=== PATIENT | male | born 1965 | race Caucasian/White ===

== ENCOUNTER 2025-03-09 10:36 | Emergency (ER) | payer MEDICARE, SELFPAY ==
--- NOTE | ~2025-03-09 | XR_ITS ---
EXAMINATION: XR CHEST 1 VIEW HISTORY: weakness COMPARISON: There are no prior studies available for comparison. FINDINGS: A single AP portable view of the chest performed at 11:54 AM is submitted. The lungs are expanded and clear. There is no pleural effusion, pneumothorax, or pulmonary vascular congestion. The heart is normal in size. There is degenerative disc disease of the spine. XR/XR chest 1V IMPRESSION: Clear lungs. Electronically signed by: Nitesh Marrero MD 03/09/2025 12:12 PM EDT
--- NOTE | ~2025-03-09 | CT_ITS ---
EXAMINATION: CT HEAD WITHOUT IV CONTRAST HISTORY: Hx of old stroke, ? worsening Rt sided weakness. TECHNIQUE: Unenhanced helical CT of the head was performed per standard departmental protocol. Coronal and sagittal reformats of the head were also evaluated. One or more of the following techniques was used for dose reduction: Automated exposure control, adjustment of the mA and/or kV according to patient size, use of iterative reconstruction technique. DLP: 841 mGy-cm COMPARISON: Comparison is made with the prior examination dated 04/21/2019. FINDINGS: BRAIN: There is diffuse prominence of the ventricular system and cortical sulci, consistent with atrophy. This is most prominent involving the brainstem and cerebellum. Periventricular and subcortical white matter hypodensities are noted which are nonspecific, but often seen in the setting of small vessel ischemic disease. 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 There is no mass effect or midline shift. No intra- or extra-axial fluid collections are identified. SINUSES: The visualized paranasal sinuses are clear. The mastoid air cells and middle ear cavities are well pneumatized. ORBITS: The visualized orbits are unremarkable. BONES/SOFT TISSUES: The extracranial soft tissues are unremarkable. The calvarium is intact. No suspicious lytic or sclerotic lesions. CT/CT head/brain wo IV con IMPRESSION: No acute intracranial abnormality. Electronically signed by: Nitesh Marrero MD 03/09/2025 11:39 AM EDT
[2025-03-09 10:44] LABS: Prothrombin Time Whole Bld POC 13.3 sec (11.1-13.5); ~PT, ~INR - Anti Coag Clinic 1.1 (0.9-1.1)
[2025-03-09 10:45] LABS: Glucose, Whole Blood 151 mg/dL (60-115)
[2025-03-09 10:47] VITALS: BP 166/99; BP 178/114; PULSE 87; PULSE 96; RESP 14; TEMP 37.2; O2SAT 99; BMI 27.0
--- NOTE | 2025-03-09 10:47 | ECG_ITS ---
Test Reason : weakness Blood Pressure : */* mmHG Vent. Rate : 84 BPM Atrial Rate : 84 BPM P-R Int : 136 ms QRS Dur : 90 ms QT Int : 404 ms P-R-T Axes : 64 61 51 degrees QTcB Int : 477 ms Normal sinus rhythm Normal ECG When compared with ECG of 21-Apr-2019 15:27, No significant changes seen Referred By: Reginaldo Allison Electronically Signed By: CUBA DIETZ
--- NOTE | 2025-03-09 10:47 | ED_ITS ---
HPI - General Adult General Chief complaint: Weakness Stated complaint: ?STROKE,LKWT 0900,INCR L DROOP,H/O STROKE/7YRS Time Seen by Provider: 03/09/25 10:47 History of Present Illness ED Provider: wan STARKS narrative: The patient is a 59-year-old man who has a history of a stroke in 2019 that left him with right-sided deficits. 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 The patient has been left with chronic weakness in the right arm and a chronic right facial weakness as well. The weakness in his right leg recovered reasonably well and he has been able to be ambulatory since the stroke although he uses a cane with his left hand when he walks. He was apparently prescribed some kind of anticoagulant at the time of his diagnosis of eye dissection. This was prescribed at discharge from his original hospitalization. He has not taken that medication or any other medication. He drinks about 3 or 4 strong alcoholic liquor drinks daily. He has recently tried to cut back on his alcohol. He felt that he was having great deal of hiccuping over the last 3 days and was feeling unwell. He tried not to drink yesterday and this morning he felt very unwell. He took 2 shots of alcohol and called his to say that he was not feeling well. She called an ambulance and he was brought to the hospital. He says that he feels generally weak. He has a sense of body tingling. No definite headache, chest pain, shortness of breath, or abdominal pain. The patient says that he gets shaky when he does not drink alcohol. He has not done detox in the past. Related Data Previous Rx's ?Medication ?Instructions ?Recorded chlordiazepoxide HCl 25 mg capsule 25 mg PO Q6H PRN al cohol 03/09/25 withdrawal #16 caps Allergies Allergy/AdvReac Type Severity Reaction Status Date / Time No Known Allergies (No Known Allergy Verified 03/09/25 10:54 Allergies*) [facility] Social History Social History Smoked in Last 30 Days: No Substance Use Type Other:: mushrooms Advance Directives: No Advance Directives Information Provided: Yes Physical Exam ED Vital Signs: Vital Signs - 24 hr 03/09/25 10:47 03/09/25 12:07 03/09/25 14:58 Temperature 98.9 F Pulse Rate 87 79 91 Respiratory Rate 14 13 18 Blood Pressure 166/99 H 155/80 H 163/97 H Pulse Oximetry 99 96 97 Oxygen Delivery Method Room Air Room Air Room Air 03/09/25 18:15 Temperature Pulse Rate 88 Respiratory Rate 15 Blood Pressure 157/100 H Pulse Oximetry 97 Oxygen Delivery Method Room Air BMI result Body Mass Index 27.0 Const Other: The patient is a somewhat chronically ill-appearing 59-year-old male who was awake and alert. He looked mildly tremulous and mildly sweaty. He was pleasant and cooperative. HENMT Other: The patient has mild facial asymmetry with some mild right-sided lower facial weakness. Tongue is midline. Mucous membranes moist. Eyes Other: Pupils are round equal, conjunctivae are clear, extraocular movements intact General: appearance normal, both eyes and all related structures Neck Neck: Yes normal visual inspection, Yes full ROM, Yes no lymphadenopathy and Yes no JVD Resp Effort & Inspection: normal respiratory effort Auscultation: clear to auscultation bilaterally Cardio Rate: regular rate Rhythm: regular rhythm Heart sounds: S1 normal heart sound present and S2 normal heart sound present GI Other: Abdomen is soft and nontender Skin Other: The skin was mildly sweaty, not frankly diaphoretic. The skin was otherwise unremarkable. Neuro Other: The patient was awake and alert with a normal mental status. He has some mild right-sided facial weakness that his says is at baseline since his stroke in 2019. His speech is clear. His cranial nerves are otherwise intact. His right arm is weak and mildly contracted. This is also baseline according to the patient and his . He has normal strength in his legs and in his left arm. He was mildly tremulous. Extrem Other: No peripheral edema Medications Administered Discontinued Medications Generic Name Dose Route Start Last Admin Trade Name Freq PRN Reason Stop Dose Admin Diazepam 10 mg 03/09/25 11:40 03/09/25 12:15 Diazepam 10 Mg/2 Ml Cartridge IVPUSH 03/09/25 11:41 10 mg STAT STA Administration Medical Decision Making Medical Decision Making [facility] Narrative: The patient is a 59-year-old male. He has a history of a stroke causing right- sided deficits. The stroke was in 2019. 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 The patient's says that the dissection was prompted by some kind of spinal manipulation, possibly at a chiropractor's. The says that as soon as he left the hospital following the stroke he stopped taking any of the medications he has been started on. He has therefore not been on any medications for years. The patient has been a fairly regular and heavy drinker. He has never been to detox. A few days ago he started to reduce his alcohol intake. He has felt unwell and very weak and tired over the last few days. He says that he had a period of incessant hiccuping and he also has not slept for 3 days. Today he told his how poorly he was doing and she called an ambulance and he was brought here. Paramedics were concerned about the possibility of a worsening of his stroke. When I examined the patient I did not feel there were any findings to suggest a new event and I did not think this was a presentation of an acute new stroke. I think his symptoms are primarily symptoms related to his alcohol use and recent attempts at stopping alcohol. A head CT was done that shows findings consistent with his previous stroke but no acute findings. An EKG showed normal sinus rhythm at 84 beats per minute. No acute ischemic changes. QTC was 477. The patient has a CBC that shows a white count of 4.4, hemoglobin 13.8, platelet count 111, unremarkable differential on his white blood count. I suspect that his CBC findings are consistent with his alcohol use. LFTs show a total bilirubin of 1.5, direct bilirubin 0.6, AST 172, ALT 194, alk phos 88. I suspect his LFT abnormalities are related to his alcohol use. My overall impression was that the patient's presentation is related to his alcohol use and recent attempts at alcohol reduction rather than any other acute medical process. I think the patient would benefit from alcohol detox. The patient was given 10 mg of IV diazepam in the emergency department with remarkable improvement in his symptoms. He felt much better. He was much less tremulous and he felt all the other unpleasant symptoms he had been experiencing resolved. I have consulted the care team for consideration of detox. The patient has been seen by the care team and they have made referrals for inpatient detox. The patient will be placed in physician observation pending efforts of the care team to get the patient into a detox facility. If he deteriorates while in the emergency room he could potentially require inpatient hospitalization for treatment of alcohol withdrawal symptoms but at this point the patient's condition does not seem that severe. He may deteriorate over time however. Addendum: The patient was seen by the care team and there was consideration for going to inpatient detox. However the patient and his are concerned that his baseline disabilities from his previous stroke are sufficiently limiting to his ambulatory status that going to an inpatient detox where he will be expected to be very independent might not be appropriate. Therefore the says that she and her son have removed all alcohol from the house and that she will be willing to look after any medications that might be used to help with alcohol withdrawal symptoms. The patient seems to have done very well with diazepam. I will be discharging him with a prescription for chlordiazepoxide that the will be in charge of monitoring. Additionally they should contact [facility] tomorrow and he should also contact his PCP to check in tomorrow as well. Lab Data 03/09/25 11:29 03/09/25 11:29 Labs: Lab Results 03/09/25 03/09/25 03/09/25 Range/Units 10:39 10:40 11:29 WBC 4.4 L (4.8-10.8) X10*3/uL RBC 4.24 L (4.60-5.80) X10*6/uL Hgb 13.8 L (14.0-18.0) g/dl Hct 37.6 L (42.0-52.0) % MCV 88.7 (80.0-98.0) fL MCH 32.5 (27.0-33.0) pg MCHC 36.7 H (31.0-36.0) g/dl RDW 13.8 (11.0-16.0) % Plt Count 111 L (160-400) X10*3/uL MPV 10.4 (9.4-12.4) fL Immature Gran % (Auto) 0.2 (0.0-0.4) % Neut % (Auto) 51.3 (45-73) % Lymph % (Auto) 30.6 (20-40) % [place] % (Auto) 12.6 H (2-11) % Eos % (Auto) 4.4 H (0-4) % Baso % (Auto) 0.9 (0-2) % Lymph # (Auto) 1.3 (1.2-4.9) X10*3/uL [place] # (Auto) 0.6 (0.1-1.2) X10*3/uL Eos # (Auto) 0.2 (0.0-0.4) X10*3/uL Baso # (Auto) 0.0 (0.0-0.2) X10*3/uL Abs Immat Gran (auto) 0.01 (0.00-0.03) X10*3/uL Absolute Neuts (auto) 2.2 (2.0-8.3) x10*3/uL Absolute Nucleated RBC 0.000 (0.0-0.012) X10*3/uL Nucleated RBC % (auto) 0.0 (0.0-0.2) /100WBC PT 13.4 H (10.9-12.4) SEC Whole Blood PT 13.3 (11.1-13.5) sec INR 1.2 H (0.9-1.1) Whole Blood INR 1.1 (0.9-1.1) VBG pH (7.32-7.43) VBG pCO2 mmHg VBG pO2 mmHg VBG HCO3 (22-26) mmol/L VBG O2 Saturation % VBG Base Excess mmol/L Sodium 139 (135-145) mmol/L Potassium 3.8 (3.3-5.1) mmol/L Chloride 104 (96-108) mmol/L Carbon Dioxide 23 (22-29) mmol/L Anion Gap 16 (12-20) BUN 8 L (9-16) mg/dL Creatinine 0.59 (0.5-1.4) mg/dL Estim Creat Clear Calc 129.1 Estimated GFR > 60 POC Glucose 151 H (60-115) mg/dL Random Glucose 147 H (60-115) mg/dL Calcium 9.2 (8.4-10.2) mg/dL Magnesium 1.9 (1.6-2.6) mg/dL Total Bilirubin 1.5 H (0.0-1.0) mg/dL Direct Bilirubin 0.6 H (0.0-0.5) mg/dL AST 172 H (5-37) U/L ALT 194 H (0-40) U/L Alkaline Phosphatase 88 (39-117) U/L Troponin I High Sens 2.7 (<3.5-35.0) ng/L C-Reactive Protein 0.23 (< or = 0.50) mg/dL B-Natriuretic Peptide 17 (<100) pg/mL Total Protein 8.2 H (6.5-8.0) g/dL Albumin 4.5 (3.5-5.0) g/dL Urine Color Urine Appearance Urine pH (5.0-9.0) Ur Specific [place] (1.005-1.025) Urine Protein (Neg-Trace) mg/dL Urine Glucose (UA) (Negative) mg/dL Urine Ketones (Negative) mg/dL Urine Blood (Negative) Urine Nitrite (Negative) Ur Leukocyte Esterase (Negative) Urine Opiates Screen (Not Detect) Ur Buprenorphine Scrn (Not Detect) ng/mL Ur Oxycodone Screen (Not Detect) ng/mL Urine Methadone Screen (Not Detect) ng/mL Urine Fentanyl Screen (Not Detect) Ur Barbiturates Screen (Not Detect) Ur Phencyclidine Scrn (Not Detect) Ur Amphetamines Screen (Not Detect) U Benzodiazepines Scrn (Not Detect) Urine Cocaine Screen (Not Detect) U Marijuana (THC) Screen (Not Detect) Ethyl Alcohol 27 mg/dL Influenza Type A (PCR) (Negative) Influenza Type B (PCR) (Negative) RSV RNA Qual (PCR) (Negative) SARS-CoV-2 RNA (RT-PCR) (Negative) 03/09/25 03/09/25 03/09/25 Range/Units 11:29 11:50 15:23 WBC (4.8-10.8) X10*3/uL RBC (4.60-5.80) X10*6/uL Hgb (14.0-18.0) g/dl Hct (42.0-52.0) % MCV (80.0-98.0) fL MCH (27.0-33.0) pg MCHC (31.0-36.0) g/dl RDW (11.0-16.0) % Plt Count (160-400) X10*3/uL MPV (9.4-12.4) fL Immature Gran % (Auto) (0.0-0.4) % Neut % (Auto) (45-73) % Lymph % (Auto) (20-40) % [place] % (Auto) (2-11) % Eos % (Auto) (0-4) % Baso % (Auto) (0-2) % Lymph # (Auto) (1.2-4.9) X10*3/uL [place] # (Auto) (0.1-1.2) X10*3/uL Eos # (Auto) (0.0-0.4) X10*3/uL Baso # (Auto) (0.0-0.2) X10*3/uL Abs Immat Gran (auto) (0.00-0.03) X10*3/uL Absolute Neuts (auto) (2.0-8.3) x10*3/uL Absolute Nucleated RBC (0.0-0.012) X10*3/uL Nucleated RBC % (auto) (0.0-0.2) /100WBC PT (10.9-12.4) SEC Whole Blood PT (11.1-13.5) sec INR (0.9-1.1) Whole Blood INR (0.9-1.1) VBG pH 7.56 H (7.32-7.43) VBG pCO2 25 mmHg VBG pO2 163 mmHg VBG HCO3 23 (22-26) mmol/L VBG O2 Saturation 100.0 % VBG Base Excess 2.7 mmol/L Sodium (135-145) mmol/L Potassium (3.3-5.1) mmol/L Chloride (96-108) mmol/L Carbon Dioxide (22-29) mmol/L Anion Gap (12-20) BUN (9-16) mg/dL Creatinine (0.5-1.4) mg/dL Estim Creat Clear Calc Estimated GFR POC Glucose (60-115) mg/dL Random Glucose (60-115) mg/dL Calcium (8.4-10.2) mg/dL Magnesium (1.6-2.6) mg/dL Total Bilirubin (0.0-1.0) mg/dL Direct Bilirubin (0.0-0.5) mg/dL AST (5-37) U/L ALT (0-40) U/L Alkaline Phosphatase (39-117) U/L Troponin I High Sens (<3.5-35.0) ng/L C-Reactive Protein (< or = 0.50) mg/dL B-Natriuretic Peptide (<100) pg/mL Total Protein (6.5-8.0) g/dL Albumin (3.5-5.0) g/dL Urine Color Yellow Urine Appearance Clear Urine pH 8.5 (5.0-9.0) Ur Specific [place] 1.015 (1.005-1.025) Urine Protein Negative (Neg-Trace) mg/dL Urine Glucose (UA) Negative (Negative) mg/dL Urine Ketones 15 (Negative) mg/dL Urine Blood Negative (Negative) Urine Nitrite Negative (Negative) Ur Leukocyte Esterase Negative (Negative) Urine Opiates Screen Not Detected (Not Detect) Ur Buprenorphine Scrn Not Detected (Not Detect) ng/mL Ur Oxycodone Screen Not Detected (Not Detect) ng/mL Urine Methadone Screen Not Detected (Not Detect) ng/mL Urine Fentanyl Screen Not Detected (Not Detect) Ur Barbiturates Screen Not Detected (Not Detect) Ur Phencyclidine Scrn Not Detected (Not Detect) Ur Amphetamines Screen Not Detected (Not Detect) U Benzodiazepines Scrn Not Detected (Not Detect) Urine Cocaine Screen Not Detected (Not Detect) U Marijuana (THC) Screen Not Detected (Not Detect) Ethyl Alcohol Cancelled mg/dL Influenza Type A (PCR) NEGATIVE (Negative) Influenza Type B (PCR) NEGATIVE (Negative) RSV RNA Qual (PCR) NEGATIVE (Negative) SARS-CoV-2 RNA (RT-PCR) NEGATIVE (Negative) Discharge Plan Discharge Clinical Impression: Alcohol withdrawal, Alcoholism, History of stroke Patient Disposition: Home, Self-Care Instructions: Alcohol Withdrawal (ED) Additional Instructions: I have sent a prescription to the [facility] on [address] in [place] for the medication chlordiazepoxide. This medication is also known as Librium. This is a medication like Valium or Ativan which is often used for alcohol withdrawal symptoms. Your should be in charge of giving you this medication. The prescription has been written for you to take 1 tablet every 6 hours as needed for alcohol withdrawal symptoms. If necessary the dose can be doubled for the 1st day. That would mean that you could take 2 tablets every 6 hours as needed. Try to avoid alcohol. Please plan on following up with your regular doctor, call the office in the morning. Additionally it would be useful to contact the [facility] here [facility]. They are an outpatient clinic that helps with substance use issues including alcohol. Please call them for a follow up appointment to discuss additional strategies for alcohol cessation. If you feel significantly worse at any time please return to the emergency room. Prescriptions: New chlordiazepoxide HCl 25 mg capsule 25 mg PO Q6H PRN (Reason: alcohol withdrawal) Qty: 16 0RF Referrals: [facility] [Provider Group] Ariel Johnson MD [Primary Care Provider, Internal Medicine] Print Language: Palestinian
--- NOTE | 2025-03-09 11:26 | PC.NURSE ---
Pt BIBA. called EMS for increased weakness after waking this AM and had hard time moving around his house, had numbness and tingling all over body but has since resolved. also reports 4 days of hiccups and poor sleep. Pt has a hx of stroke 7 yrs ago, has right-sided deficits. Has not been on blood thinners for several years. He also reports being a daily drinker, having about 5 drinks of vodka daily. He tried to stop yesterday, he did have 2 shots this morning. No hx of alcohol withdrawals. He also says he was microdosing mushrooms and stopped a week ago. Hes alert and oriented, breathing normally, unlabored. Denies shortness of breath. Skin p/w/d. currently experiencing some nausea. No vomiting or pain. He does have weakness in his right arm and slight right-sided facial droop which is his baseline. He has an 18g IV in his LAC by EMS. 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 VSS. Blood work obtained and sent to lab. Family at bedside. Plan of care on going.
[2025-03-09 11:39] LABS: MANUAL DIFF FLAG NO
[2025-03-09 11:47] LABS: Hematocrit 37.6 % (42.0-52.0); Hemoglobin 13.8 g/dl (14.0-18.0); Imm Gran Abs Auto 0.01 X10*3/uL (0.00-0.03); Imm Gran Pct Auto 0.2 % (0.0-0.4); Lymphocytes Absolute Auto 1.3 X10*3/uL (1.2-4.9); Mean Corpuscular HGB Conc 36.7 g/dl (31.0-36.0); Mean Corpuscular Hemoglobin 32.5 pg (27.0-33.0); Mean Corpuscular Volume 88.7 fL (80.0-98.0); NRBC Abs Auto 0.000 X10*3/uL (0.0-0.012); NRBC Pct Auto 0.0 /100WBC (0.0-0.2); Platelet Count 111 X10*3/uL (160-400); Red Blood Count 4.24 X10*6/uL (4.60-5.80); White Blood Count 4.4 X10*3/uL (4.8-10.8)
[2025-03-09 11:49] LABS: INTERNATIONAL NORM RATIO 1.2 (0.9-1.1); Prothrombin Time 13.4 SEC (10.9-12.4)
[2025-03-09 11:54] LABS: VBG HCO3 23 mmol/L (22-26); VBG O2 % Saturation 100.0 %
[2025-03-09 11:54] LABS: Venous Blood Gas Refer to POC result
[2025-03-09 11:59] LABS: Alanine Aminotransferase 194 U/L (0-40); Albumin Level 4.5 g/dL (3.5-5.0); Alkaline Phosphatase 88 U/L (39-117); Anion Gap 16 (12-20); Aspartate Amino Transferase 172 U/L (5-37); Blood Urea Nitrogen 8 mg/dL (9-16); Calcium 9.2 mg/dL (8.4-10.2); Carbon Dioxide 23 mmol/L (22-29); Chloride 104 mmol/L (96-108); Creatinine Clr Calc Pharmacy 129.1; Estimated Glomerular Filt Rate > 60; Magnesium 1.9 mg/dL (1.6-2.6); Potassium 3.8 mmol/L (3.3-5.1); Sodium 139 mmol/L (135-145); Total Protein 8.2 g/dL (6.5-8.0)
[2025-03-09 12:02] LABS: B Type Natriuretic Peptide 17 pg/mL (<100)
[2025-03-09 12:03] LABS: Troponin-I High Sensitivity 2.7 ng/L (<3.5-35.0)
[2025-03-09 12:07] VITALS: BP 155/80; PULSE 79; RESP 13; O2SAT 96
[2025-03-09] MEDS: diazePAM 10 MG/2 ML CARTRIDGE IVPUSH (12:15)
[2025-03-09 12:29] LABS: Resp Syncy Virus RNA Qual PCR NEGATIVE (Negative); SARS COV2 PCR INHOUSE NEGATIVE (Negative)
--- OUTSIDE RECORDS SUMMARY | 2025-03-09 13:04 | XMS_ITS | Encounter Summary ---
Author Organization Formerly [facility] Address [address] [place] [address] Care Team Providers Care Business Trainer Name Role Phone Unknown Primary Care Provider [phone] Ariel Johnson DO Primary Care Provider [phone] Pcp, No Primary Care Provider Unavailabl e Ariel Johnson DO Primary Care Provider [phone] Encounter Details Date Type Department Care Team (Late st Contact Info) Description 04/21/2019 Scanned Document [address] [id number] Medical Records, Scan Social History Tobacco Use Types Packs/Day Years Used Date Smoking Tobacco: Never Smokeless Tobacco: Never Alcohol Use Standard Drinks/Week Comments Yes 0 (1 standard drink = 0.6 oz pur e alcohol) AUDIT-C Answer Date Recorded Frequency of Alcohol Consumption 2-4 times a fri04/21/2019 Average Number of Drinks Not on file 019 Frequency of Binge Drinking Not on file 04/04 Sex and Gender Information Value Date Recorded Sex Assigned at Not on file Legal Sex Male 4:03 PM EDT Gender Identity Not on file Sexual Orientation Not on file documented as of this encounter Functional Status documented as of this encounter Plan of Treatment Not on file documented as of this encounter Visit Diagnoses Not on filedocumented in this encounter Care Teams Business Trainer Relationship Specialty Start Date End Date Unknown Unknow Provider Address PCP - General 04/23/19 04/23/19 Ariel Johnson DO [address] [facility] [place] [address] [place] [address] PCP - General 04/21/19 04/22/19 Pcp, No PCP - General General Medicine 05/04/19 06/23/19 Ariel Johnson DO [address] [facility] [place] [address] [place] [address] PCP - General 06/24/19 documented as of this encounter
[2025-03-09 14:58] VITALS: BP 163/97; PULSE 91; RESP 18; O2SAT 97
--- NOTE | 2025-03-09 15:09 | MHC.CARE ---
Pt is a detox bed search currently.
[2025-03-09 15:32] LABS: Appearance Urine Clear; Glucose Urine UA Negative (Negative); PH 8.5 (5.0-9.0); Specific Gravity - Urine 1.015 (1.005-1.025)
[2025-03-09 15:41] LABS: Cannabinoid Screen Urine Not Detected (Not Detect)
--- NOTE | 2025-03-09 15:50 | MHC.CARE ---
Patient has Medicare A & B insurance so detox facilities that accept his insurance is limited. [facility] [place] [facility], referral was faxed and they do not have any male beds currently [facility] reports they have no beds [facility] have a male bed, referral faxed over and they are currently reviewing for possible admission.
[2025-03-09 18:15] VITALS: BP 157/100; PULSE 88; RESP 15; O2SAT 97
--- NOTE | 2025-03-09 18:43 | MHC.CARE ---
Received a call from Radha at [facility] detox, requesting a phone screening with Pt. Checked in with Pt afterwards who reports that he was declined due to mobility issues. Reginaldo Allison is present for this conversation and it was decided for Pt to discharge home with a script to assist with withdrawal which Pt's will assist with. Alcohol has been taken out of the home. Pt was provided information about [facility]'s [facility].
[2025-03-09 18:54] VITALS: BP 166/94; PULSE 92; RESP 20; TEMP 36.8; O2SAT 96
== END 2025-03-09 19:37 | disposition home or self-care (01) ==
PROVIDERS: Emergency Provider Emergency Medicine; PCP Internal Medicine
DX: F10.239 Alcohol dependence with withdrawal, unspecified (principal); Y90.1 Blood alcohol level of 20-39 mg/100 ml; R29.810 Facial weakness; M62.81 Muscle weakness (generalized); Z86.73 Personal history of transient ischemic attack (TIA), and cerebral infarction without residual deficits; Z79.899 Other long term (current) drug therapy; Z03.818 Encounter for observation for suspected exposure to other biological agents ruled out; Z71.41 Alcohol abuse counseling and surveillance of alcoholic; Z79.01 Long term (current) use of anticoagulants; Z51.81 Encounter for therapeutic drug level monitoring
CPT/HCPCS: 36415; 70450; 71045; 80048; 80076; 80307; 81003; 82803; 82947; 83735; 83880; 84484; 85025; 85610; 86140; 87637; 93005; 99285; J3360; S9485

== ENCOUNTER → 2025-03-09 10:47 | Outpatient (BNV) | payer MEDICARE, SELFPAY | PROVIDERS: Emergency Provider Emergency Medicine; PCP Internal Medicine; Visit Provider Internal Medicine | DX: R53.1 Weakness (principal) | CPT/HCPCS: 93010 ==

== ENCOUNTER → 2025-03-09 10:48 | Outpatient (BNV) | payer MEDICARE, SELFPAY | PROVIDERS: Emergency Provider Emergency Medicine; Visit Provider Radiology Diagnostic Radiology | DX: R53.1 Weakness (principal) | CPT/HCPCS: 70450; 71045 ==

== ENCOUNTER 2025-04-15 10:08 | Outpatient (REF) | payer MEDICARE, SELFPAY ==
--- OUTSIDE RECORDS SUMMARY | 2025-04-15 11:33 | XMS_ITS | Encounter Summary ---
Author Organization [facility] Address [address] [facility] [address] [place] [address] Phone Care Team Providers Care Flue Lining Dipper Name Role Phone Ariel Johnson Primary Care Provider [phone] Reason for Referral * Occupational Therapy (Routine) - Closed Specialty Diagnoses / Procedures Referred By Contac t Referred To Contact Occupational Therapy Diagnoses Encounter for rehabilitation Regla Thomson MD [address] [facility] [address] [place] [address] Phone: tel: fax: [facility] [address] [place] [address] Phone: tel: Referral ID Status Reason Start Date Expiration Date Visits Re quested Visits Authorized [id number] Closed 05/27/2019 08/03/2020 99 [phone] Encounter Details Date Type Department Care Team (Latest Contact Info) Description 05/27/2019 Transcribe Orders [facility] [address] [place] [address] Regla Thomson MD [address] [facility] [address] [place] [address] Encounter for rehabilitation (Primary Dx) Social History Tobacco Use Types Packs/Day Years Used Date Smoking Tobacco: Never Assessed Sex and Gender Information Value Date Recorded Sex Assigned at Male 06/30/2019 6:43 PM EST Legal Sex Male 9:38 PM EDT Gender Identity Male 06/30/2019 6:43 PM EST Sexual Orientation Straight 06/30/2019 6: 43 PM EST documented as of this encounter Plan of Treatment Scheduled Referrals Name Type Priority Associated Diagnoses Orde r Schedule Ambulatory referral to [facility] Occupational Therapy Outpatient Referral Routine Encounter for rehabilitation Ordered: 05/27/2019 documented as of this encounter Visit Diagnoses Diagnosis Encounter for rehabilitation- Primary documented in this encounter Care Teams Flue Lining Dipper Relationship Specialty Start Date End Date Ariel Johnson DO [email or web address] PCP - General Internal Medicine 06/02/19 documented as of this encounter Additional Source Comments The information contained in this document represents components of the legal health record. It is not the complete legal health record.[facility]
--- OUTSIDE RECORDS SUMMARY | 2025-04-15 11:33 | XMS_ITS | Encounter Summary ---
Author Organization [facility] Address [address] [place] [address] [place] [address] Phone Care Team Providers Care Media Assistant Name Role Phone Ariel Johnson DO Primary Care Provider [phone] Encounter Details Date Type Department Care Team (Late st Contact Info) Description 05/27/2019 Transcribe Orders [facility] Services [address] [place] [address] Regla Thomson MD [address] [facility] 1 [place] [address] Social History Tobacco Use Types Packs/Day Years [...] on filedocumented in this encounter Care Teams Media Assistant Relationship Specialty Start Date End Date Ariel Johnson DO PCP - General Internal Medicine 06/02/19 documented as of this encounter Additional Source Comments The information contained in this document represents components of the legal health record. It is not the complete legal health record.[facility]
--- OUTSIDE RECORDS SUMMARY | 2025-04-15 11:33 | XMS_ITS | Encounter Summary ---
Author Organization [facility] Address [address] [place] [address] Phone Care Team Providers Care Quotation Checker Name Role Phone Ariel Johnson Primary Care Provider Reason for Referral * Physical Therapy (Routine) - Closed Specialty Diagnoses / Procedures Referred By Contac t Referred To Contact Physical Therapy Diagnoses Encounter for rehabilitation Regla Thomson MD [address] [facility] 1 [place] [address] Phone: tel: fax: [facility] [address] [place] [address] Phone: tel: Referral ID Status Reason Start Date Expiration Date Visits Re quested Visits Authorized [id number] Closed 05/27/2019 08/03/2020 99 99 Encounter Details Date Type Department Care Team (Latest Contact Info) Description 05/27/2019 Transcribe Orders [facility] Rehabilitation [facility] [address] [place] [address] Regla Thomson MD [address] [facility] 1 [place] [address] Encounter for rehabilitation (Primary Dx) Social History [...] Diagnoses Orde r Schedule Ambulatory referral to [facility] Physical Therapy Outpatient Referral Routine Encounter for rehabilitation Ordered: 05/27/2019 documented as of this encounter Visit Diagnoses Diagnosis Encounter for rehabilitation- Primary documented in this encounter Care Teams Quotation Checker Relationship Specialty Start Date End Date Ariel Johnson DO [email or web address] PCP - General Internal Medicine 06/02/19 documented as of this encounter Additional Source Comments The information contained in this document represents components of the legal health record. It is not the complete legal health record.[facility]
--- OUTSIDE RECORDS SUMMARY | 2025-04-15 11:34 | XMS_ITS | Encounter Summary ---
Author Organization [facility] Address [address] [place] [address] Phone Care Team Providers Care Scale Clerk Name Role Phone Ariel Johnson Primary Care Provider [phone] Reason for Referral * Speech Therapy (Routine) - Closed Specialty Diagnoses / Procedures Referred By Contac t Referred To Contact Speech Pathology Diagnoses Encounter for rehabilitation Regla Thomson MD [address] [facility] 1 [place] [address] Phone: tel: fax: [facility] [address] [place] [address] Phone: tel: Referral ID Status Reason Start Date Expiration Date Visits Re quested Visits Authorized [id number] Closed 05/27/2019 08/03/2020 99 99 Encounter Details Date Type Department Care Team (Latest Contact Info) Description 05/27/2019 Transcribe Orders [facility] Rehabilitation Services 8 [place] [address] Regla Thomson MD [address] [facility] 1 [place] [address] Encounter for rehabilitation (Primary Dx) Social History [...] Diagnoses Orde r Schedule Ambulatory referral to [facility] Speech Language Pathology Outpatient Referral Routine Encounter for rehabilitation Ordered: 05/27/2019 documented as of this encounter Visit Diagnoses Diagnosis Encounter for rehabilitation- Primary documented in this encounter Care Teams Scale Clerk Relationship Specialty Start Date End Date Ariel Johnson DO [email or web address] PCP - General Internal Medicine 06/02/19 documented as of this encounter Additional Source Comments The information contained in this document represents components of the legal health record. It is not the complete legal health record.[facility]
--- OUTSIDE RECORDS SUMMARY | 2025-04-15 11:34 | XMS_ITS | Encounter Summary ---
Author Organization [facility] Address [address] [place] [address] Care Team Providers Care Tumbling Machine Operator Name Role Phone Unknown Primary Care Provider [phone] Ariel Johnson DO Primary Care Provider [phone] Pcp, No Primary Care Provider Unavailabl e Ariel Johnson DO Primary Care Provider [phone] Encounter Details Date Type Department Care Team (Late st Contact Info) Description 04/21/2019 Scanned Document [address] [address] Medical Records, Scan Social History [...] on filedocumented in this encounter Care Teams Tumbling Machine Operator Relationship Specialty Start Date End Date Unknown Unknow Provider Address PCP - General 04/23/19 04/23/19 Ariel Johnson DO [address] [facility] [place] [address] [place] [address] PCP - General 04/21/19 04/22/19 Pcp, No PCP - General General Medicine 05/04/19 06/23/19 Ariel Johnson DO [address] [facility] [place] [address] [place] [address] PCP - General 06/24/19 documented as of this encounter
--- OUTSIDE RECORDS SUMMARY | 2025-04-15 11:34 | XMS_ITS | Encounter Summary ---
Author Organization [facility] Address [address] [place] [address] Care Team Providers Care Casing Man Name Role Phone Ariel Johnson DO Primary Care Provider [phone] Encounter Details Date Type Department Care Team (Late st Contact Info) Description 07/22/2019 Scanned Document [facility] [address] [place] [phone] Cherise Castillo MD Social History Tobacco Use Types Packs/Day Years Used Date Smoking Tobacco: Never Smokeless Tobacco: Never Alcohol Use Standard Drinks/Week Comments Yes 0 (1 standard drink = 0.6 oz pur e alcohol) AUDIT-C Answer Date Recorded Frequency of Alcohol Consumption 2-4 times a mon th 04/21/2019 Average Number of Drinks Not on file 019 Frequency of Binge Drinking Not on file 04/04 Sex and Gender Information Value Date Recorded Sex Assigned at Not on file Legal Sex Male 4:03 PM EDT Gender Identity Not on file Sexual Orientation Not on file documented as of this encounter Plan of Treatment Not on file documented as of this encounter Visit Diagnoses Not on filedocumented in this encounter Care Teams Casing Man Relationship Specialty Start Date End Date Ariel Johnson DO [address] [facility] [address] [place] [address] PCP - General 06/24/19 documented as of this encounter
--- OUTSIDE RECORDS SUMMARY | 2025-04-15 11:34 | XMS_ITS | Clinical Summary ---
Author Organization [facility] Address [address] [place] [address] Care Team Providers Care Inventory Control Analyst Name Role Phone Ariel Johnson Primary Care Provider Allergies No known active allergies Medications atorvastatin (LIPITOR) 80 MG tabletIndicatio ns:Ischemic stroke (HCC) Take 1 tablet (80 mg total) by mouth daily. Do not start before April 29, 2019. 30 tablet 9 Active tamsulosin (FLOMAX) 0.4 MG capsuleIndicati ons:Ischemic stroke (HCC) Take 2 capsules (0.8 mg total) by mouth every evening after dinner. 60 capsule 9 Active Multiple Vitamin (MULTIVITAMIN) capsule Take 1 capsule by mouth daily. Active b complex vitamins tablet Take 1 tablet by mouth daily. Active coenzyme Q10 (CO Q 10) 100 MG capsule Take 100 mg by mouth daily. Active omega-3 fatty acids (FISH OIL) 1000 MG Cap capsule Take by mouth. Act carolyn zinc sulfate (ZINCATE) 220 mg capsule Take 220 mg by mouth daily. Active MISC MEDICATION/NEUT RACEUTICALIndic ations:saw palmetto by Does not apply route. Active apixaban (ELIQUIS) 5 MG tabletIndicatio ns:Basilar artery thrombosis,Acut e ischemic stroke (HCC) Take 1 tablet (5 mg total) by mouth every 12 (twelve) hours around the clock. 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 Acute ischemic stroke 04/21/2019 Overview (04/21/2019): Added automatically from request for surgery [id number] Family History Medical History Relation Name Comments Heart failure Brother Heart failure Father COPD Mother Relation Name Status Comments Brother Father Mother Alive Social History Tobacco Use Types Packs/Day Years [...] on file Sexual Orientation Not on file Last Filed Vital Signs Vital Sign Reading Time Taken Comments Blood Pressure 122/72 08/21/2019 7:39 AM EST Pulse 77 08/21/2019 7:39 AM EST Temperature 36.1 C (96.9 F) 08/21/2019 7:39 AM EST Respiratory Rate 18 08/20/2019 11:30 PM EST Oxygen Saturation 95% 08/21/2019 7:39 AM EST Inhaled Oxygen Concentration - - Weight 95.3 kg (210 lb) 11/09/2019 1:00 PM EDT Height 170.2 cm (5' 7 ) 11/09/2019 1:00 PM EDT Body Mass Index 32.89 11/09/2019 1:00 PM EDT Plan of Treatment Health Maintenance Due Date Last Done Comments Hepatitis C Virus Screening 1965 HIV Screening 11/27/1980 DTaP/Tdap/Td Vaccines (1 - Tdap) 11/27/1986 Hepatitis B Vaccines (1 of 3 - 19+ 3-dose series) 11/03 Colonoscopy 11/27/2012 Pneumococcal Vaccines 50+ (1 of 1 - PCV) 11/27/2017 Zoster (Shingles) Vaccine (1 of 2) 11/27/2017 Influenza Vaccine 03/04/2025 COVID-19 Vaccine (1 - 2023- season) 2025 Insurance [employer] HMO/POS Advance Directives * Full Code (Latest Code Status on File) Date Activated Date Inactivated Comments 08/20/2019 6:50 PM * Full Code Date Activated Date Inactivated Comments 04/21/2019 5:19 PM 08/20/2019 6:34 PM Care Teams Inventory Control Analyst Relationship Specialty Start Date End Date Ariel Johnson DO [address] [facility] [address] [place] [address] PCP - General 06/24/19
--- OUTSIDE RECORDS SUMMARY | 2025-04-15 11:34 | XMS_ITS | Encounter Summary ---
Author Organization [facility] Address [address] [facility] [address] [place] [address] Phone Care Team Providers Care Line Service Technician Name Role Phone Ariel Johnson DO Primary Care Provider [phone] Encounter Details Date Type Department Care Team (Latest Contact Info) Description 06/25/2019 Transcribe Orders Virtual Department [address] [place] [address] Marry Pimentel, KILEY [address] [place] [address] Localized edema (Primary Dx) Social History Tobacco Use Types [...] on file documented as of this encounter Results * US Lower Extremity Veins Duplex (Right) (06/30/2019 5:36 PM EST) Anatomical Region Laterality Modality Hip Right, Thigh Right, Knee Right, Leg Right, Ankle Right, Foot Right Ultrasound 06/30/2019 6:06 PM EST Impressions 06/30/2019 6:14 PM EST Evidence of venous thrombosis involving the tributaries to the right popliteal vein. US technologist communicated the findings to Dr. Allison. POS - [id number] Narrative 06/30/2019 6:14 PM EST EXAM: US LOWER EXTREMITY VEINS DUPLEX (RIGHT) HISTORY: EDEMA OF LOWER EXTREMITY RIGHT LOWER EXTREMITY SWOLLEN AND PAINFUL COMPARISON: None Ultrasound examination of the deep venous system of the right leg was performed from the common femoral vein into the upper calf and includes the posterior tibial vein at the ankle. Intraluminal echogenic material noted in the evaluated tributaries of the popliteal vein. The popliteal and femoral veins demonstrate preserved flow, compressibility, and augmentation. No popliteal cyst. Procedure Note Benji Echavarria MD - 06/30/2019 EXAM: US LOWER EXTREMITY VEINS DUPLEX (RIGHT) HISTORY: EDEMA OF LOWER EXTREMITY RIGHT LOWER EXTREMITY SWOLLEN AND PAINFUL COMPARISON: None Ultrasound examination of the deep venous system of the right leg wasperformed from the common femoral vein into the upper calf and includesthe posterior tibial vein at the ankle. Intraluminal echogenic material noted in the evaluated tributaries of thepopliteal vein. The popliteal and femoral veins demonstrate preservedflow, compressibility, and augmentation. No popliteal cyst. IMPRESSION: Evidence of venous thrombosis involving the tributaries to the rightpopliteal vein. US technologist communicated the findings to Dr. Allison. POS - [id number] November Loren CAO CV US VASCULAR Final Result documented in this encounter Visit Diagnoses Diagnosis Localized edema- Primary Edema Localized edema Edema documented in this encounter Care Teams Line Service Technician Relationship Specialty Start Date End Date Ariel Johnson DO [email or web address] PCP - General Internal Medicine 06/02/19 documented as of this encounter Additional Source Comments The information contained in this document represents components of the legal health record. It is not the complete legal health record.[facility]
--- OUTSIDE RECORDS SUMMARY | 2025-04-15 11:34 | XMS_ITS | Encounter Summary ---
Author Organization [facility] Address [address] [place] [address] Care Team Providers Care Acid Dumper Name Role Phone Ariel Johnson Khushboo ROSE Primary Care Provider [phone] Encounter Details Date Type Department Care Team (Late st Contact Info) Description 08/02/2019 Telephone [facility] [address] [place] [address] [phone] Milagros Downing, ABDIFATAH [address] [place] [address] Social History Tobacco Use Types Packs/Day Years [...] on file documented as of this encounter Miscellaneous Notes * Telephone Encounter - Milagros Downing RN - 08/02/2019 9:30 AM EST Pt's spouse called,stated pt's PCP stated pt should be on Eliquis for 3 months following the occurrence of the blood clot,not 30 days. Spouse stated he was told to take the Eliquis for 30 days and then resume the ASA when he was seen for the blood clot. Please advise. documented in this encounter Plan of Treatment Not on file documented as of this encounter Visit Diagnoses Not on filedocumented in this encounter Care Teams Acid Dumper Relationship Specialty Start Date End Date Ariel Johnson DO [address] [facility] [place] [address] [place] [address] PCP - General 06/24/19 documented as of this encounter
--- OUTSIDE RECORDS SUMMARY | 2025-04-15 11:34 | XMS_ITS | Encounter Summary ---
Author Organization [facility] Address [address] [place] [address] Care Team Providers Care Cutlery Grinder Name Role Phone Ariel Johnson DO Primary Care Provider Encounter Details Date Type Department Care Team (Late st Contact Info) Description 08/07/2019 Scanned Document [facility] [address] [place] [address] [phone] Cherise Castillo MD Social History Tobacco Use [...] on filedocumented in this encounter Care Teams Cutlery Grinder Relationship Specialty Start Date End Date Ariel Johnson DO [address] [facility] [place] [address] [place] [address] PCP - General 06/24/19 documented as of this encounter
--- OUTSIDE RECORDS SUMMARY | 2025-04-15 11:34 | XMS_ITS | Encounter Summary ---
Author Organization [facility] Address [address] [address] Phone Care Team Providers Care Signal Mechanic Name Role Phone Ariel Johnson DO Primary Care Provider [phone] Encounter Details Date Type Department Care Team (Latest Contact Info) Description 07/30/2021 Transcribe Orders Virtual Department [address] [place] [address] Jossy Arroyo PA [address] [place] [address] [place] [address] Other specified local infections of the skin and subcutaneous tissue (Primary Dx) Social History Tobacco Use Types Packs/Day Years Used Date Smoking Tobacco: Never Smokeless Tobacco: Never Alcohol Use Standard Drinks/Week Comments Yes 1 (1 standard drink = 0.6 oz pur e alcohol) nightly Sex and Gender Information Value Date Recorded Sex Assigned at Male 06/30/2019 6:43 PM EST Legal Sex Male 9:38 PM EDT Gender Identity Male 06/30/2019 6:43 PM EST Sexual Orientation Straight 06/30/2019 6: 43 PM EST documented as of this encounter Plan of Treatment Not on file documented as of this encounter Visit Diagnoses Diagnosis Other specified local infections of the skin and subcutaneous tissue- Primary documented in this encounter Care Teams Signal Mechanic Relationship Specialty Start Date End Date Ariel Johnson DO PCP - General Internal Medicine 06/02/19 documented as of this encounter Additional Source Comments The information contained in this document represents components of the legal health record. It is not the complete legal health record.[facility]
[2025-04-15 13:17] LABS: MANUAL DIFF FLAG NO
[2025-04-15 13:37] LABS: Hematocrit 40.3 % (42.0-52.0); Hemoglobin 13.9 g/dl (14.0-18.0); Imm Gran Abs Auto 0.01 X10*3/uL (0.00-0.03); Imm Gran Pct Auto 0.1 % (0.0-0.4); Lymphocytes Absolute Auto 2.3 X10*3/uL (1.2-4.9); Mean Corpuscular HGB Conc 34.5 g/dl (31.0-36.0); Mean Corpuscular Hemoglobin 31.5 pg (27.0-33.0); Mean Corpuscular Volume 91.4 fL (80.0-98.0); NRBC Abs Auto 0.000 X10*3/uL (0.0-0.012); NRBC Pct Auto 0.0 /100WBC (0.0-0.2); Platelet Count 148 X10*3/uL (160-400); Red Blood Count 4.41 X10*6/uL (4.60-5.80); White Blood Count 6.7 X10*3/uL (4.8-10.8)
[2025-04-15 14:07] LABS: Alanine Aminotransferase 76 U/L (0-40); Albumin Level 4.0 g/dL (3.5-5.0); Alkaline Phosphatase 72 U/L (39-117); Anion Gap 10 (12-20); Aspartate Amino Transferase 53 U/L (5-37); Blood Urea Nitrogen 8 mg/dL (9-16); Calcium 8.9 mg/dL (8.4-10.2); Carbon Dioxide 26 mmol/L (22-29); Chloride 105 mmol/L (96-108); Estimated Glomerular Filt Rate > 60; Potassium 4.1 mmol/L (3.3-5.1); Sodium 137 mmol/L (135-145); Total Protein 7.2 g/dL (6.5-8.0)
== END 2025-04-15 10:09 | disposition home or self-care (01) ==
LOC: HO.MANLDS 10:08
PROVIDERS: Visit Provider Internal Medicine
DX: I10 Essential (primary) hypertension (principal)
CPT/HCPCS: 36415; 80053; 85025